=== PATIENT | male | born 1995 | race American Indian/Alaskan Native ===

== ENCOUNTER 2017-02-28 14:00 | Emergency (ER) | payer OTHER ==
[2017-02-28 14:09] VITALS: BP 100/50
--- NOTE | 2017-02-28 14:24 | EDM.PDOC ---
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 Patient swung on a rope and struck the medial left knee. Denies any other injury. Quality: Reports: Ache Severity: Severe Improves with: Reports: None Worsens with: Reports: None Associated Symptoms: Reports: No Other Symptoms Left Knee Pain Score (Numeric/FACES): 3 - Related Data Allergies Allergy/AdvReac Type Severity Reaction Status Date / Time No Known Allergies Allergy Verified 02/28/17 15:12 Home Meds: Home Meds . [No Known Home Meds] 02/28/17 [History] Social & Family History - Family History Family Medical History: Noncontributory Review of Systems - Review of Systems Review Of Systems: ROS reveals no pertinent complaints other than HPI. ED EXAM, GENERAL - Physical Exam Exam: See Below Exam Limited By: No Limitations General Appearance: Alert, WD/WN, No Apparent Distress Respiratory/Chest: No Respiratory Distress Cardiovascular: Normal Peripheral Pulses Back Exam: Normal Inspection, Full Range of Motion, NT Extremities: Other (unable to bear weight on left knee. Moderate effusion of left knee. Tender at anterior knee and medial joint line.) Neurological: Alert, Oriented, CN II-XII Intact, Normal Cognition, Normal Gait, Normal Reflexes, No Motor/Sensory Deficits Psychiatric: Normal Affect, Normal Mood Skin Exam: Warm, Dry, Intact, Normal Color, No Rash Course - Vital Signs Last Recorded V/S: Last Vital Signs Temp 35.8 C 02/28/17 14:07 Pulse 84 02/28/17 14:07 Resp 18 02/28/17 14:07 BP 100/50 L 02/28/17 14:07 Pulse Ox 96 02/28/17 14:07 - Orders/Labs/Meds Orders: Active Orders 24 hr Category Date Time Status Immobilizer [RC] ASDIRECTED Care 02/28/17 14:53 Active DME for Discharge [COMM] Routine Oth 02/28/17 14:54 Ordered Meds: Medications Discontinued Medications Generic Name Dose Route Start Last Admin Trade Name Dimitris PRN Reason Stop Dose Admin Ibuprofen 600 mg 02/28/17 14:54 02/28/17 14:58 Motrin PO 02/28/17 14:55 600 mg ONETIME ONE Administration - Radiology Interpretation Free Text/Narrative:: Left knee x-rays: Per rad report shows normal left knee x-rays. Departure - Departure Time of Disposition: 14:54 Disposition: Home, Self-Care 01 Condition: good Clinical Impression: Internal derangement of left knee Sprain of left knee Qualifiers: Encounter type: initial encounter Involved ligament of knee: unspecified ligament Qualified Code(s): S83.92XA - Sprain of unspecified site of left knee, initial encounter - Discharge Information Instructions: Knee Sprain, [id number], Knee Effusion, [id number] Forms: ED Department Discharge Additional Instructions: Rest, ice and elevated left knee to reduce pain and swelling. Use crutches and knee immobilizer for 7 to 10 days until evaluated by your doctor for recheck. Motrin 600mg. Follow up in clinic in 7 to 10 days. - My Orders Last 24 Hours: My Active Orders 02/28/17 14:53 Immobilizer [RC] ASDIRECTED 02/28/17 14:54 DME for Discharge [COMM] Routine - Assessment/Plan Last 24 Hours: My Active Orders 02/28/17 14:53 Immobilizer [RC] ASDIRECTED 02/28/17 14:54 DME for Discharge [COMM] Routine
[2017-02-28] MEDS ORDERED: Ibuprofen 600 MG Tab PO ONE (14:54)
== END 2017-02-28 15:09 | disposition home or self-care (01) ==
LOC: DL.ED 14:00
DX: S83.92XA Sprain of unspecified site of left knee, initial encounter (principal); X50.1XXA Overexertion from prolonged static or awkward postures, initial encounter
CPT/HCPCS: 73564; 99283; A9270